=== PATIENT | female | born 1990 | race Caucasian/White ===

== ENCOUNTER 2019-04-16 18:23 | Emergency (ER) | payer OTHER ==
[2019-04-16] MEDS ORDERED: ONDANSETRON *ODT* 4 MG TABLET SL ONE (18:37)
--- NOTE | 2019-04-16 18:37 | PDOC ---
Rapid Medical Evaluation Time Seen by Provider: 04/16/19 18:36 Medical Evaluation: 04/16/19 18:36 HPI: C/O withdrawal from percocet PE: No gross deficits ORDERS: Zofran, labs, Tylenol level U Preg Discharge Disposition - Diagnosis Narcotic abuse - Referrals - Patient Instructions - Post Discharge Activity
[2019-04-16 18:42] VITALS: BP 97/58; PULSE 68; TEMP 98.3; BMI 24.7
[2019-04-16] MEDS ORDERED: SODIUM CHLORIDE 1,000 ML IV STA ×2 (20:04→21:54)
[2019-04-16] MEDS ORDERED: ONDANSETRON *ODT* 4 MG TABLET ONE (20:21)
--- NOTE | 2019-04-16 20:22 | PDOC ---
History of Present Illness - General Chief Complaint: Nausea/Vomiting Stated Complaint: VOMITTING/HEADACHE/ABD/PAIN Time Seen by Provider: 04/16/19 18:36 History Source: Patient Exam Limitations: No Limitations - History of Present Illness Initial Comments: 04/16/19 20:13 28yo F with PMH of Hydrocephalus, Migraines, Opioid use, Depression presenting to ED with complaints of opioid withdrawal. Pt states that she has been taking multiple Percocet's daily (8) and stopped taking it 2w ago. She started to have vomiting, diarrhea, sweats, nausea x5d. She had tried to stop using opiates in the past and had similar symptoms. She states the vomitus is bilious and has used the restroom every time she urinates. Denies fever, back pain, headache, syncope, dizziness, urinary symptoms. PMD: [place] PMH: none PSH: [employer] shunt? Meds: Topamax, antidepressant Allergies: PCN Social: marijuana use, no IV drug use Past History - Past Medical History Allergies/Adverse Reactions: Allergies Allergy/AdvReac Type Severity Reaction Status Date / Time Penicillins Allergy Verified 04/16/19 18:38 Home Medications: Ambulatory Orders Topiramate [Topamax -] 150 mg PO ASDIR 04/16/19 Zolpidem Tartrate [Ambien] 12.5 mg PO HS 04/16/19 COPD: No Psychiatric Problems: Yes (depression) Other medical history: chr pain - Suicide/Smoking/Psychosocial Hx Smoking History: Never smoked Drug/Substance Use Hx: Yes (rx'd percocets) *Physical Exam - Vital Signs Last Vital Signs Temp Pulse Resp BP Pulse Ox 98.3 F 68 18 97/58 L 98 04/16/19 18:40 04/16/19 18:40 04/16/19 18:40 04/16/19 18:40 04/16/19 18:40 ED Treatment Course - LABORATORY CBC & Chemistry Diagram: 04/16/19 20:50 04/16/19 20:36 Medical Decision Making - Medical Decision Making 04/16/19 23:02 28yo F with PMH of Hydrocephalus, Migraines, Opioid use, Depression presenting to ED with complaints of opioid withdrawal. Pt states that she has been taking multiple Percocet's daily (8) and stopped taking it 2w ago. She started to have vomiting, diarrhea, sweats, nausea x5d. She had tried to stop using opiates in the past and had similar symptoms. She states the vomitus is bilious and has used the restroom every time she urinates. Denies fever, back pain, headache, syncope, dizziness, urinary symptoms. Vitals: wnl PE: dry mucous membranes, nontender abdomen, otherwise normal exam Likely withdrawal from opiate use. Low suspicion for pancreatitis, appendicitis , diverticulitis, infectious diarrhea, malabsorption. will order labs iv fluids, ofirmev, zofran, pepcid Does not require further imaging. Called [facility], they said they have no beds right now. labs wnl. Pt still complaining of withdrawal. will give 20mg po methadone. pt feeling better. Told patient that she cannot get rx for methadone but encouraged pt to go to [facility] tomorrow. pt agrees to plan. pt did not want juice in fear of vomiting pills. she was able to drink the water for the methadone. given return precautions. *DC/Admit/Observation/Transfer Diagnosis at time of Disposition: Narcotic abuse - Discharge Dispostion Disposition: HOME Condition at time of disposition: Good Decision to Admit order: No - Referrals Referrals: Balta Melendez [Primary Care Provider] - - Patient Instructions Printed Discharge Instructions: DI for Opioid Addiction Additional Instructions: You were seen in the emergency room for nausea, vomiting and diarrhea due to opiate withdrawal. I highly recommend you go to detox. This is located at [address] [place] [address]. They open every day at 8am. Keep yourself well hydrated. Please continue to stop taking narcotics. Come back to the emergency room for worsening pain, if you stop having bowel movements, if you are unable to eat or drink anything, if you continue vomiting or if any new concerning symptom develops. Thank you - Post Discharge Activity
[2019-04-16] MEDS ORDERED: ACETAMINOPHEN 1000 MG/100 ML VIAL (NON FORMULARY) IVPB ONE (20:50)
[2019-04-16] MEDS ORDERED: ONDANSETRON 4 MG/2 ML VIAL IVPB ONE (20:50)
[2019-04-16] MEDS ORDERED: ACETAMINOPHEN INJECTION 100 ML IVPB ONE (20:54)
[2019-04-16] MEDS ORDERED: ONDANSETRON 4 MG/2 ML VIAL ONE (20:55)
[2019-04-16 21:12] LABS: BASO % 0.1 % (0-2.0); HEMATOCRIT 37.1 % (32.4-45.2); HEMOGLOBIN 12.1 GM/dL (10.7-15.3); LYMPH % 8.8 % (8-40); MCH 28.1 pg (25.7-33.7); MCHC 32.6 g/dl (32.0-36.0); MEAN CELL VOLUME 86.3 fl (80-96); MEAN PLT VOLUME 10.3 fl (7.5-11.1); NEUT % 89.1 % (42.8-82.8); PLATELET COUNT 384 K/MM3 (134-434); RDW 13.9 % (11.6-15.6); WHITE BLOOD COUNT 9.6 K/mm3 (4.0-10.0)
[2019-04-16 21:35] LABS: ALBUMIN 4.8 g/dl (3.4-5.0); ALK PHOS 58 U/L (45-117); ANION GAP 10 MMOL/L (8-16); BILIRUBIN,TOTAL 0.7 mg/dL (0.2-1); CALCIUM 9.9 mg/dL (8.5-10.1); CHLORIDE 113 mmol/L (98-107); CO2 22 mmol/L (21-32); CREATININE 0.7 mg/dL (0.55-1.3); GLUCOSE,RANDOM 114 mg/dL (74-106); LIPASE 252 U/L (73-393); POTASSIUM 4.2 mmol/L (3.5-5.1); SGOT/AST 10 U/L (15-37); SGPT/ALT 19 U/L (13-61); SODIUM 145 mmol/L (136-145); TOT PROT 8.4 g/dl (6.4-8.2)
--- NOTE | 2019-04-16 21:57 | PDOC ---
Documentation entered by Suha Oneil SCRIBE, acting as scribe for Sandeep Hampton MD. Sandeep Hampton MD: This documentation has been prepared by the waltibe, Suha Oneil SCRIBE, under my direction and personally reviewed by me in its entirety. I confirm that the documentation accurately reflects all work, treatment, procedures, and medical decision making performed by me. Attending Attestation - Resident Resident Name: Prerna,Roselyn - ED Attending Attestation I have performed the following: I have examined & evaluated the patient, The case was reviewed & discussed with the resident, I agree w/resident's findings & plan, Exceptions are as noted - HPI HPI: 04/16/19 20:42 The patient is a 28-year-old female, with a past medical history of hydrocephalus, migraines, and opioid abuse, who presents to the ED with opioid withdrawal and is seeking detox. The patient reports heavy Percocet use (8 daily ) that she recently stopped 2 weeks ago. She reports that for the last 5 days she has been experiencing sweating, vomiting, and loose stools. She is unable to keep any solids or liquids down. The patient has tried to quit taking percocet in the past and experienced similar symptoms. The patient denies any fevers or chills. Denies abdominal pain. Denies any headache, dizziness, weakness, lightheadedness, or changes in strength or sensation. Allergies: Penicillins - Physicial Exam PE: 04/16/19 20:43 GENERAL: Awake, alert, and fully oriented, in no acute distress. HEAD: No signs of trauma EYES: PERRLA, EOMI, sclera anicteric, conjunctiva clear ENT: Auricles normal inspection, hearing grossly normal, nares patent, oropharynx clear without exudates. Moist mucosa NECK: Nontender, no stepoffs, Normal ROM, supple, no lymphadenopathy, JVD, or masses LUNGS: Breath sounds equal, clear to auscultation bilaterally. No wheezes, and no crackles HEART: Regular rate and rhythm, normal S1 and S2, no murmurs, rubs or gallops ABDOMEN: Soft, nontender, normoactive bowel sounds. No guarding, no rebound. No masses EXTREMITIES: Normal range of motion, no edema. No clubbing or cyanosis. No cords, erythema, or tenderness NEUROLOGICAL: Cranial nerves II through XII intact. 5/5 strength and sensation in all extremities, Normal speech, normal gait, normal cerebellar function SKIN: Warm, Dry, normal turgor, no rashes or lesions noted. - Medical Decision Making 04/16/19 21:58 28 F with N+V+D, likely 2/2 opioid withdrawal. Benign abdominal exam. - Labs - Zofran, fluids 04/16/19 22:23 Labs wnl Called [facility], no beds available tonight for detox Will give methadone tonight to alleviate pt's symptoms until she is able to register for detox tomorrow morning. 04/16/19 22:47 Pt feeling much better after methadone Tolerating PO Pt is well appearing, with normal vitals. Clinically stable for DC at this time. I discussed the physical exam findings, ancillary test results and final diagnoses with the patients family. I answered all of their questions. The family was satisfied with the care received and felt comfortable with the discharge plan and treatment plan. They agree to follow up with the primary care physician within 24-72 hours.
[2019-04-16] MEDS ORDERED: FAMOTIDINE 20 MG/50 ML IVPB 20 MG/50 ML MG IVPB ONE ×2 (22:01→22:25)
[2019-04-16] MEDS ORDERED: METHADONE HCL 10 MG TABLET PO ONE (22:04)
[2019-04-16] MEDS ORDERED: METHADONE HCL 10 MG TABLET ONE (22:11)
== END 2019-04-16 23:06 | disposition home or self-care (01) ==
LOC: JER 18:23
PROC: 3E033NZ Introduction of Analgesics, Hypnotics, Sedatives into Peripheral Vein, Percutaneous Approach (ICD-10-PCS; principal; 2019-04-16)
PROC: 3E0337Z Introduction of Electrolytic and Water Balance Substance into Peripheral Vein, Percutaneous Approach (ICD-10-PCS; 2019-04-16)
PROC: 3E033GC Introduction of Other Therapeutic Substance into Peripheral Vein, Percutaneous Approach (ICD-10-PCS; 2019-04-16)
DX: F11.23 Opioid dependence with withdrawal (principal)
CPT/HCPCS: 36415; 80053; 80307; 83690; 84703; 85025; 99283-25; J0131; J7030; Q0162